=== PATIENT | female | born 1995 | race Two or more races ===

== ENCOUNTER 2019-10-16 13:33 | Emergency (ER) | payer OTHER, SELFPAY ==
--- NOTE | ~2019-10-16 | XR_ITS ---
EXAMINATION: XR chest 2V EXAM DATE: 10/16/2019 14:44 INDICATION: Lymphadenopathy. TECHNIQUE: Frontal and lateral projections of the chest obtained and reviewed. There is no prior tahir dy for comparison. FINDINGS: The lungs are clear. There are no pleural effusions. The cardiomediastinal silhouette is within normal limits. There is no pneumothorax suspected. The bones and soft tissues are unremarkab le. IMPRESSION: No acute cardiopulmonary findings. Reviewed, dictated and finalized at location B.
[2019-10-16 13:51] VITALS: BP 113/82; PULSE 94; RESP 20; TEMP 36.9; O2SAT 100
--- NOTE | 2019-10-16 14:06 | ED.NECK ---
HPI - Neck Pain/Injury General Chief Complaint: Neck Pain/Injury Stated Complaint: swelling to neck Time Seen by Provider: 10/16/19 13:49 Source: patient Mode of arrival: ambulatory Limitations: no limitations History of Present Illness HPI Narrative: A 24 y/o female pt presents to the ED, with c/o swelling to the rt lateral side of her neck x 2 weeks. Pt reports being seen at urgent care x 2 weeks ago for this complaint and was prescribed steroids. She states that the swelling went down when taking the steroids, but the swelling has now returned. Pt notes being tested for strep throat and influenza at the urgent care and states her results were negative. She denies N/V/D, SOB, difficulty swallowing, fevers/sweats/chills, weight loss, cough, ear pain/pressure or difficulty hearing. Pt notes her neck is continuing to swell and denies having a PCP. She denies having any sick contacts. complaint: other (rt lateral neck swelling) Onset (ago): week(s) (2) Duration: other (improved with steroids, now returned and continuing to swell) Relieving factors: other (steroids) Related Data Allergies Allergy/AdvReac Type Severity Reaction Status Date / Time No Known Allergies Allergy Verified 10/16/19 13:53 Review of Systems Review of Systems: All systems reviewed & are unremarkable except as noted in HPI and below Constitutional: Constitutional: Denies chills, Denies excessive sweating, Denies fever(s) and Denies weight loss ENT: Denies dysphagia, Denies otalgia and Denies other (ear pressure, difficulty hearing) Respiratory: Respiratory: Denies cough and Denies dyspnea Gastrointestinal: Gastrointestinal: Denies diarrhea, Denies nausea and Denies vomiting Musculoskeletal: Musculoskeletal: Reports other (rt lateral side neck swelling) PMFSH Past Medical History Medical History (Updated 10/16/19 @ 15:44 by Suraj Mcfarlane MD) Iron deficiency anemia Surgical History Surgical History (Updated 10/16/19 @ 15:37 by ANNI Tucker) No significant past surgical history Social History Social History (Updated 10/16/19 @ 15:37 by ANNI Tucker) Smoking status: Unknown if ever smoked Exam Narrative: Exam Narrative: GENERAL: Well-appearing, well-nourished, and in no acute distress. HEAD: Normocephalic, atraumatic. ENT: Mucous membranes moist. No pharyngeal erythema or tonsillar exudate. Uvula midline and nonedematous. NECK: Supple. Right posterior cervical lymphadenopathy approximately 1 cm in diameter that is mobile and not ballotable. No tenderness or erythema. CHEST: Clear to auscultation. No respiratory distress. HEART: Regular rate and rhythm. Normal peripheral pulses. EXTREMITIES: Normal range of motion. No edema. Course Course Emergency Course: Patient informed of results. Will give PCP follow-up. May require TB testing but lymphadenopathy is likely related to viral syndrome. Patient may also need biopsy should symptoms persist. Patient aware of treatment plan and verbalized understanding. Vital Signs Vital signs: Vital Signs Temperature 98.5 F 10/16/19 13:51 Pulse Rate 94 10/16/19 13:51 Respiratory Rate 20 10/16/19 13:51 Blood Pressure 113/82 10/16/19 13:51 Pulse Oximetry 100 10/16/19 13:51 Temperature 98.5 F 10/16/19 13:51 Pulse Rate 94 10/16/19 13:51 Respiratory Rate 10/16/19 13:51 Blood Pressure 113/82 10/16/19 13:51 Pulse Oximetry 100 10/16/19 13:51 MDM - Neck Pain/Injury Lab Data Result diagrams: 10/16/19 14:30 10/16/19 14:30 Labs: Lab Results 10/16/19 10/16/19 Range/Units 14:30 14:30 WBC 4.4 L (4.5-10.0) K/mm3 RBC 4.24 (4.2-5.4) M/mm3 Hgb 13.0 (12.0-15.0) g/dL Hct 40.2 (37.0-47.0) % MCV 94.8 (80-100) fl MCH 30.7 (26-34) pg MCHC 32.3 (32-36) g/dl RDW 13.1 (11.5-14.5) % Plt Count 116 L (150-375) k/mm3 MPV 13.0 H (7.4-10.4) fl Immature Gran % (Auto) 0.2 (
[2019-10-16 14:39] LABS: Basophils Percent Auto 0.5 % (0.2-1.2); Eosinophils Absolute Auto 0.1 K/mm3 (0-0.3); Eosinophils Percent Auto 1.8 % (0-4.4); Hematocrit 40.2 % (37.0-47.0); Immature Granulocyte Absolute 0.01 K/mm3 (0.00-0.031); Immature Granulocyte Percent A 0.2 % (0-0.5); Lymphocytes Absolute Auto 1.01 K/mm3 (0.9-3.2); Mean Corpuscular HGB Conc 32.3 g/dl (32-36); Mean Corpuscular Hemoglobin 30.7 pg (26-34); Mean Corpuscular Volume 94.8 fl (80-100); Monocytes Absolute Auto 0.4 K/mm3 (0.1-0.6); Monocytes Percent Auto 9.3 % (2.6-8.5); Neutrophils Absolute Auto 2.9 K/mm3 (1.3-6.7); Neutrophils Percent Auto 65.2 % (45.5-73.1); Platelet Count Result 116 k/mm3 (150-375); Red Blood Count 4.24 M/mm3 (4.2-5.4); Red Cell Distribution Width 13.1 % (11.5-14.5); White Blood Count 4.4 K/mm3 (4.5-10.0)
[2019-10-16 14:48] LABS: Blood Urea Nitrogen 7 mg/dL (7-17); Calcium 8.8 mg/dL (8.4-10.2); Carbon Dioxide 26 mmol/L (22-30); Chloride 104 mmol/L (98-107); Estimated Glomerular Filt Rate > 60; Glucose 93 mg/dL (65-105); Potassium 4.3 mmol/L (3.4-5.0); Sodium 138 mmol/L (137-145)
[2019-10-16 15:51] VITALS: BP 123/80; PULSE 80; RESP 20; TEMP 36.7; O2SAT 99
== END 2019-10-16 15:53 | disposition home or self-care (01) ==
PROVIDERS: Emergency Provider Emergency Medicine
DX: R59.1 Generalized enlarged lymph nodes (principal); Z86.2 Personal history of diseases of the blood and blood-forming organs and certain disorders involving the immune mechanism
CPT/HCPCS: 36415; 71046; 80048; 85025; 87081; 87880; 99283

== ENCOUNTER 2019-10-22 13:08 | Outpatient (CLI) | payer OTHER, SELFPAY ==
--- NOTE | ~2019-10-22 | US_ITS ---
EXAMINATION: US soft tissue head and neck DATE: 10/22/2019 13:39 INDICATION: Right neck mass TECHNIQUE: Multiple grayscale and Doppler ultrasound images of the region of concern at the base of t he right neck were obtained. COMPARISON: None FINDINGS: There is prominent internal vascular flow within multiple hypoechoic lymph nodes at the region of con cern. All measure less than 1 cm in maximal short axis dimension, the largest 1.9 x 1.4 x 0.6 and the next largest 1.4 x 1.3 x 0.5. IMPRESSION: 1. Prominent likely reactive right cervical lymphadenopathy, the largest lymph nodes measuring up to 6 mm in maximal short axis dimension which remains within normal limits. Recommend continued clinical follow-up with repeat imaging and/or biopsy as clinically indicated. Reviewed, dictated and finalized at location A. IMPRESSION: 1. Prominent likely reactive right cervical lymphadenopathy, the largest lymph nodes measuring up to 6 mm in maximal short axis dimension which remains within normal limits. Recommend continued clinical follow-up with repeat imaging and/ or biopsy as clinically indicated.
== END 2019-10-22 13:09 | disposition home or self-care (01) ==
LOC: ANHIMG 13:15
PROVIDERS: PCP Emergency Medicine; Visit Provider Emergency Medicine
DX: M54.2 Cervicalgia (principal); R59.0 Localized enlarged lymph nodes
CPT/HCPCS: 76536